=== PATIENT | female | born 1995 ===

== ENCOUNTER 2018-03-04 10:21 | Inpatient (IN) | payer OTHER ==
[~2018-03-04] VITALS: Ht 175.3 cm; Wt 120.5 kg
[2018-03-15] VITALS (29 sets, daily range): BP systolic 101–1113; BP diastolic 53–86; PULSE 50–99; TEMP 97.5–98
[2018-03-15] MEDS ORDERED: PROTONIX20 MG PO (08:33)
[2018-03-15 08:40] LABS: BASO % 0.4 % (0.0-2.0); EOS # 0.1 (0.0-0.7); EOS % 0.8 % (0-4.0); GRAN # 5.3 (1.4-6.5); GRAN % 66.8 % (42.2-75.2); HEMOGLOBIN 11.4 g/dl (12.5-16.0); LYMPH # 1.9 (1.2-3.4); LYMPH % 23.8 % (20.0-51.0); MEAN CELL VOLUME 87 fl (80.0-100.0); MEAN CORPUSCULAR HEMOGLOBIN 30 pg (27.0-31.0); MEAN CORPUSCULAR HGB CONC 34 g/dl (33.0-37.0); MEAN PLATELET VOLUME 11.9 fl (7.4-10.4); MONO # 0.6 (0.1-0.6); MONO % 7.1 % (1.7-9.3); PLATELET COUNT 198 K/mm3 (130-400); RED BLOOD COUNT 3.85 M/mm3 (4.10-5.30); REDCELL DISTRIBUTION WIDTH-CV 13.3 % (11.5-14.5)
[2018-03-15 08:46] LABS: HEMATOCRIT 33.6 % (37.0-47.0)
[2018-03-16 00:30] VITALS: BP 128/68; PULSE 61; TEMP 98.1
[2018-03-16] MEDS ORDERED: IBU600 MG PO (06:48)
[2018-03-16 07:36] LABS: HEMOGLOBIN 11.4 g/dl (12.5-16.0)
[2018-03-16 07:41] LABS: HEMATOCRIT 33.9 % (37.0-47.0)
[2018-03-16 08:20] VITALS: BP 122/80; PULSE 74; TEMP 97.7
[2018-03-16 12:00] VITALS: BP 102/53; PULSE 74; TEMP 98.3
[2018-03-16 16:00] VITALS: BP 98/50; PULSE 73; TEMP 97.9
[2018-03-16 20:00] VITALS: BP 120/83; PULSE 70; TEMP 97.4
[2018-03-17] MEDS ORDERED: PERCOCET 325 MG1 TA2 PO (07:52)
[2018-03-17 08:27] VITALS: BP 129/85; PULSE 78; TEMP 97.5
== END 2018-03-17 11:12 | disposition home or self-care (01) | DRG 775 ==
LOC: LDR 03-15 06:21 → OB 03-15 07:00 → LDR 03-15 07:00 → OB 03-15 16:00 → LDR 03-16 10:21 → OB 03-17 11:12
PROVIDERS: Obstetrics & Gynecology
PROC: 10E0XZZ Delivery of Products of Conception, External Approach (ICD-10-PCS; principal; 2018-03-15)
PROC: 3E033VJ Introduction of Other Hormone into Peripheral Vein, Percutaneous Approach (ICD-10-PCS; 2018-03-15)
DX: O99.214 Obesity complicating childbirth (principal); Z3A.40 40 weeks gestation of pregnancy; Z37.0 Single live birth; O99.334 Smoking (tobacco) complicating childbirth; K21.9 Gastro-esophageal reflux disease without esophagitis; O99.344 Other mental disorders complicating childbirth; F32.9 Major depressive disorder, single episode, unspecified
CPT/HCPCS: J2590; J2795; J7120